=== PATIENT | male | born 1985 | race Caucasian/White ===

== ENCOUNTER 2024-09-18 17:37 | Emergency (ER) | payer OTHER ==
[~2024-09-18] VITALS: Ht 167.6 cm; Wt 65.8 kg
[2024-09-18] MEDS ORDERED: LISINOPRIL40 MG PO (17:53)
[2024-09-18] MEDS ORDERED: ATORVASTATIN CA20 M1 PO (17:53)
[2024-09-18] MEDS ORDERED: INSULIN AS100 UNIT/2 SQ (17:54)
[2024-09-18] MEDS ORDERED: Acetaminophen/Hydrocodone HP 10/325 PO ONE (20:05)
[2024-09-18] MEDS ORDERED: Acetaminophen/Hydrocodone Bi 3 TAB PACK PO PRN (23:05)
== END 2024-09-18 23:53 | disposition home or self-care (01) ==
LOC: ED 17:37
DX: S42.202A Unspecified fracture of upper end of left humerus, initial encounter for closed fracture (principal); Z79.899 Other long term (current) drug therapy; Z79.4 Long term (current) use of insulin; X50.1XXA Overexertion from prolonged static or awkward postures, initial encounter; Y93.89 Activity, other specified; Y92.89 Other specified places as the place of occurrence of the external cause; Y99.8 Other external cause status